=== PATIENT | male | born 1985 | race Caucasian/White ===

== ENCOUNTER 2022-01-16 16:57 | Emergency (ER) | payer MEDICAID ==
[~2022-01-16] VITALS: Ht 177.8 cm; Wt 102.3 kg
[2022-01-16 17:05] VITALS: BP 112/66
[2022-01-16] MEDS ORDERED: ondansetron/PF 4mg/2ml inj IV ONE (17:15)
[2022-01-16] MEDS ORDERED: morphine 4 MG/ML inj SYRINge IV PRN (17:15)
[2022-01-16] MEDS ORDERED: normal saline 1000ML IV soln IVB ONE (17:15)
[2022-01-16 18:23] LABS: BASOPHILS # (AUTO) 0.1 X10'3 (0-0.2); BASOPHILS % (AUTO) 1.2 % (0-1); EOSINOPHILS % (AUTO) 0.2 % (0-6); HEMATOCRIT 45.9 % (42.0-52.0); LYMPHOCYTES # (AUTO) 1.7 X10'3 (1.1-4.8); LYMPHOCYTES % (AUTO) 19.8 % (21-51); MEAN CORPUSCULAR HEMOGLOBIN 34.5 PG (27.0-31.0); MEAN CORPUSCULAR HGB CONC 34.9 g/dL (33.0-36.5); MEAN CORPUSCULAR VOLUME 98.8 FL (78-98); MEAN PLATELET VOLUME 6.9 FL (7.4-10.4); MONOCYTES # (AUTO) 0.5 X10'3 (0-0.9); NEUTROPHILS # (AUTO) 6.4 X10'3 (1.8-7.7); NEUTROPHILS % (AUTO) 72.8 % (42-75); PLATELET COUNT 327 X10'3 (140-440); RED BLOOD COUNT 4.64 X10'6 (4.70-6.10); RED CELL DISTRIBUTION WIDTH 13.4 % (11.5-14.5); WHITE BLOOD COUNT 8.7 X10'3 (4.5-11.0)
[2022-01-16 18:29] LABS: ALANINE AMINOTRANSFERASE 169 U/L (12-78); ALBUMIN 3.8 G/DL (3.4-5.0); ALKALINE PHOSPHATASE 71 IU/L (46-116); ANION GAP 16 (8-16); ASPARTATE AMINO TRANSFERASE 211 U/L (10-37); BILIRUBIN,TOTAL 0.3 MG/DL (0.1-1.0); BLOOD UREA NITROGEN 9 MG/DL (7-18); BUN/CREATININE RATIO 8.8 (5.4-32.0); CALCIUM 8.4 MG/DL (8.5-10.1); CHLORIDE 105 MMOL/L (99-107); CREATININE 1.02 MG/DL (0.60-1.10); ETHANOL 0.206 GM/DL (0.0-0.010); GLUCOSE 150 MG/DL (70-104); POTASSIUM 3.6 MMOL/L (3.5-5.1); SODIUM 144 MMOL/L (135-145); TOTAL CARBON DIOXIDE 23.3 MMOL/L (24-32); TOTAL PROTEIN 7.7 G/DL (6.4-8.2); eGFR 83 ML/MIN
[2022-01-16] MEDS ORDERED: ketorolac trometh. 30mg/ml inj. IV ONE (20:15)
[2022-01-16] MEDS ORDERED: HYDR-3972 PO (20:42)
[2022-01-16] MEDS ORDERED: IBUP-1986 PO (20:42)
--- NOTE | 2022-01-16 21:02 | NUR ---
IV MEDICATIONS ADMINISTERED BY ER PROVIDER
== END 2022-01-16 21:17 | disposition home or self-care (01) ==
LOC: ER 16:57
DX: R07.81 Pleurodynia (principal)
CPT/HCPCS: 36415; 71250; 74176; 80053; 80320; 85025; 85610; 99284; J7030